=== PATIENT | male | born 1955 | race Caucasian/White ===

== ENCOUNTER 2019-12-17 12:00 | Outpatient (CLI) | payer OTHER, SELFPAY ==
--- NOTE | ~2019-12-17 | US_ITS ---
EXAMINATION: US venous doppler [facility] DATE: 12/17/2019 12:39 INDICATION: Left lower limb edema TECHNIQUE: Juarez scale images without and with compression and Doppler images of the left lower extrem ity veins were obtained. COMPARISON: None FINDINGS: The left common femoral vein, profunda femoral vein, femoral vein, popliteal vein, peroneal trunk, posterior tibial veins, and greater saphenous vein are patent. IMPRESSION: 1. Patent left lower extremity veins. No evidence of deep venous thrombosis. Reviewed, dictated and finalized at location A.
== END 2019-12-17 12:01 | disposition home or self-care (01) ==
LOC: ANHIMG 12:03
PROVIDERS: PCP Internal Medicine; Visit Provider Internal Medicine
DX: R60.9 Edema, unspecified (principal)
CPT/HCPCS: 93971

== ENCOUNTER 2019-12-25 10:34 | Outpatient (CLI) | payer OTHER, SELFPAY ==
--- NOTE | ~2019-12-25 | US_ITS ---
EXAMINATION: US abdomen limited EXAM DATE: 12/25/2019 12:38 INDICATION: Right upper quadrant pain. TECHNIQUE: Multiple grayscale and Doppler images of the abdomen right upper quadrant were obtained (adama y a technologist who performed the scan) and subsequently reviewed. There is no prior study for sarah fleming. FINDINGS: The pancreatic head and body are normal in appearance. The pancreatic tail is not visualized. The l iver has normal echogenicity and contour. There are no focal liver lesions identified. There is no evidence of intrahepatic biliary duct dilation. Portal venous flow was seen in the hepatopedal, nor mal direction and has normal Doppler waveform. No right-sided hydronephrosis. Common bile duct measures 5 mm, which is normal. The gallbladder wall is normal in thickness, with ex pected amount of distention. No sonographic evidence of pericholecystic fluid. There is no cholelit hiases. Technologist performing exam reports patient did not demonstrate sonographic Bustos's sign. Please note that this sign is less reliable in patients who have received pain medication. IMPRESSION: 1. Unremarkable abdominal ultrasound exam. Reviewed, dictated and finalized at location B.
== END 2019-12-25 10:35 | disposition home or self-care (01) ==
LOC: ANHIMG 10:40
PROVIDERS: PCP Internal Medicine; Visit Provider Internal Medicine
DX: R10.11 Right upper quadrant pain (principal)
CPT/HCPCS: 76705

== ENCOUNTER 2020-05-16 07:07 | Outpatient (CLI) | payer OTHER, SELFPAY ==
[2020-05-16 07:47] LABS: Hemoglobin A1C 5.5 % (<5.7)
[2020-05-16 07:54] LABS: Alanine Aminotransferase 27 U/L (4-50); Albumin Level 4.3 g/dL (3.5-5.1); Alkaline Phosphatase 76 U/L (38-126); Anion Gap 5 mmol/L (8-16); Aspartate Amino Transferase 32 U/L (17-59); Bilirubin,Total 0.7 mg/dL (0.2-1.3); Blood Urea Nitrogen 15 mg/dL (9-20); Calcium 9.2 mg/dL (8.4-10.2); Carbon Dioxide 32 mmol/L (22-30); Chloride 105 mmol/L (98-107); Estimated Glomerular Filt Rate > 60; Glucose 105 mg/dL (75-110); Potassium 4.2 mmol/L (3.4-5.0); Sodium 142 mmol/L (137-145)
== END 2020-05-16 07:08 | disposition home or self-care (01) ==
PROVIDERS: PCP Internal Medicine; Referring Provider Specialist; Visit Provider Nurse Practitioner
DX: R73.02 Impaired glucose tolerance (oral) (principal)
CPT/HCPCS: 36415; 80053; 83036

== ENCOUNTER 2020-07-30 19:18 | Emergency (ER) | payer OTHER, SELFPAY ==
--- NOTE | ~2020-07-30 | XR_ITS ---
XR chest 2V DATE: 07/30/2020 19:53 INDICATION: Chest pain, epigastric pain. History of atrial fibrillation, hypertension, gastroesophage al reflux TECHNIQUE: PA and lateral views COMPARISON: 07/24/2019 PA and lateral chest FINDINGS: Normal heart size. There is aortic unfolding. No hilar or mediastinal enlargement is eviden t. Minimal atelectasis is suggested at the lung bases. The lungs otherwise appear clear. No pulmonary va scular congestion or pleural effusion or pneumothorax. Diffuse osteopenia. IMPRESSION: Minimal atelectasis at the lung bases; otherwise no active cardiac pulmonary disease Reviewed, dictated and finalized at location A. [employer]
[2020-07-30 19:24] VITALS: BP 152/89; PULSE 63; RESP 16; TEMP 37.1; O2SAT 100
--- NOTE | 2020-07-30 19:29 | ECG_ITS ---
Measurements Intervals [place] Rate: 61 P: 44 WY: 212 QRS: -14 QRSD: 102 T: 51 QT: 377 QTc: 381 Interpretive Statements SINUS RHYTHM WITH FIRST DEGREE AV BLOCK BASELINE ARTIFACT- I, II, III, AVR, AVF ABNORMAL ECG Electronically Signed On 07-31-2020 6:51:23 [facility] by Guille Mcgarry D.O.
[2020-07-30 19:33] VITALS: BP 143/91; PULSE 75; RESP 21; TEMP 36.6; O2SAT 98
[2020-07-30 20:00] LABS: Basophils Absolute Auto 0.1 K/mm3 (0.0-0.1); Basophils Percent Auto 0.6 % (0.2-1.2); Eosinophils Absolute Auto 0.3 K/mm3 (0-0.3); Eosinophils Percent Auto 3.6 % (0-4.4); Hematocrit 42.9 % (42.0-52.0); Hemoglobin 14.5 g/dL (14.0-18.0); Immature Granulocyte Absolute 0.01 K/mm3 (0.00-0.031); Immature Granulocyte Percent A 0.1 % (0-0.5); Lymphocytes Absolute Auto 2.77 K/mm3 (0.9-3.2); Lymphocytes Percent Auto 35.9 % (18.3-44.2); Mean Corpuscular HGB Conc 33.8 g/dl (32-36); Mean Corpuscular Hemoglobin 30.2 pg (26-34); Mean Corpuscular Volume 89.4 fl (80-100); Mean Platelet Volume 9.2 fl (7.4-10.4); Monocytes Percent Auto 12.6 % (2.6-8.5); Neutrophils Absolute Auto 3.6 K/mm3 (1.3-6.7); Neutrophils Percent Auto 47.2 % (45.5-73.1); Platelet Count Result 295 k/mm3 (150-375); Red Cell Distribution Width 12.1 % (11.5-14.5); White Blood Count 7.7 K/mm3 (4.5-10.0)
[2020-07-30 20:02] LABS: Add Urine Microscopic? NO; Appearance Urine Clear (Clear); Bilirubin Urine Negative (Negative); Blood Urine Negative (Negative); Color Urine Straw (Yellow); Glucose Urine UA Negative (Negative); Ketones Urine Negative (Negative); Leukocyte Esterase Ur Negative LEU/UL (Negative); Nitrate Urine Negative (Negative); Protein Urine Negative (Negative); Specific Grav Ur 1.011 (1.001-1.035); Urobilinogen Urine Negative mg/dL (<2.0)
--- NOTE | 2020-07-30 20:03 | ED.GENADULT ---
HPI - General Adult General Chief complaint: Abdominal Pain Stated complaint: left rib pain, urgent care sent here. Time Seen by Provider: 07/30/20 19:49 Source: patient Mode of arrival: ambulatory Limitations: no limitations History of Present Illness HPI narrative: A 64-year-old [facility] of pain in his left lower chest, left upper abdomen. Patient states that the pain came on a couple of hours ago when he was eating dinner. He notes that it is a sharp pain in the lower aspect of his ribs on the left side. Pain does not radiate anywhere. He denies any chest pain or deeper belly pain. He denies any associated symptoms such as nausea or vomiting. Patient also denies any shortness of breath, fever, chills, cough or body aches. He states that he was originally at an urgent care center when he was told to come here as his pain may be related to his heart and his A. fib. Related Data Home Medications Medication Instructions Recorded Confirmed Adult Multivitamin Gummies 200 mcg PO DAILY 07/24/19 05/23/20 aspirin [Adult Low Dose Aspirin] 81 mg PO DAILY 07/24/19 05/23/20 calcium carbonate [Calcium 500] 500 mg PO DAILY 07/24/19 05/23/20 cetirizine 10 mg PO DAILY 07/24/19 05/23/20 magnesium 100 mg PO DAILY 07/30/20 Allergies Allergy/AdvReac Type Severity Reaction Status Date / Time No Known Allergies Allergy Verified 07/30/20 19:38 Review of Systems Review of Systems: Narrative: CONSTITUTIONAL: Denies fever, chills, or sweats. EYES: Denies visual changes, redness, or discharge. ENT: Denies rhinorrhea, congestion, sore throat, or otalgia. CARDIOVASCULAR: Denies chest pain, palpitations, or edema. Tenderness to palpation on the left lower ribs. RESPIRATORY: Denies cough or dyspnea. GASTROINTESTINAL: Denies abdominal pain, nausea, vomiting, or diarrhea. GENITOURINARY: Denies dysuria or hematuria. SKIN: Denies rash or itching. MUSCULOSKELETAL: Denies back pain, joint pain, or myalgia. NEUROLOGIC: Denies headache, numbness, dizziness, or weakness. PSYCHIATRIC: Denies anxiety or depression. [facility] Past Medical History Medical History (Updated 07/30/20 @ 21:23 by Hank Corbin DO) Chronic headaches GERD (gastroesophageal reflux disease) History of stress test Unremarkable stress test in August 2018. Hypertension Impaired glucose tolerance Internal hemorrhoids Noted on screening colonoscopy per Dr. Vera in October 2010. Obstructive sleep apnea Surgical History Surgical History Status post excision of lipoma Status post repair of ventral hernia Open ventral hernia repair with mesh per Dr. perdomo in July 2014. Status post rotator cuff repair 2009. Family History Family History Mother , Mother at age 49. Breast cancer Father , at age 63. Bone cancer Father Family history of malignant neoplasm of bone Patient's father is Mother Family history of malignant neoplasm of breast in first degree relative Other Family history of cardiovascular disease Social History Social History Social History: Mr. Gabriel is and lives with his in [place]. They have 3 children. 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 He designates his , Elsa, as his surrogate decision maker and he wishes to be a full code. He smoked up to 2 packs of cigarettes per day and quit 25 years ago. No alcohol or drug abuse. Smoking status: Former smoker Smoking end date: 07/01/98 Additional smoking assessment comments: Quit 20 years ago. Gender identity (if verbalized by the patient): Male Spiritual care concerns: Yes ([facility]) Agree to blood products: Yes Exam Narrative: Exam Narrative: GENERAL: Well-appearing, well-nourished, and in no acute
--- NOTE | 2020-07-30 20:04 | PC.NURSE ---
Called lab spoke with linda added on lipase
[2020-07-30 20:10] LABS: INR 1.9; Prothrombin Time 22.3 Seconds (11.1-14.7)
[2020-07-30 20:11] LABS: Partial Thromboplastin Time 39.7 SECONDS (22.3-36.8)
[2020-07-30 20:13] LABS: Anion Gap 1 mmol/L (8-16); Blood Urea Nitrogen 18 mg/dL (9-20); Calcium 8.9 mg/dL (8.4-10.2); Carbon Dioxide 31 mmol/L (22-30); Chloride 106 mmol/L (98-107); Estimated CRCL calculation 71 ml/min; Estimated Glomerular Filt Rate > 60; Glucose 114 mg/dL (75-110); Lipase 129 U/L (23-300); Potassium 3.6 mmol/L (3.4-5.0); Sodium 138 mmol/L (137-145)
[2020-07-30 20:24] LABS: Troponin I < 0.012 ng/mL (0.000-0.034)
[2020-07-30] MEDS: KETOROLAC 15 MG/ML VIAL (*BKC) IV PUSH (21:00)
[2020-07-30 21:42] VITALS: BP 131/85; PULSE 54; RESP 19; TEMP 36.4; O2SAT 97
== END 2020-07-30 21:43 | disposition home or self-care (01) ==
PROVIDERS: Emergency Medicine; Emergency Provider Emergency Medicine; PCP Internal Medicine
DX: R07.81 Pleurodynia (principal); K21.9 Gastro-esophageal reflux disease without esophagitis; I10 Essential (primary) hypertension; G47.33 Obstructive sleep apnea (adult) (pediatric); Z79.82 Long term (current) use of aspirin; Z87.891 Personal history of nicotine dependence; I44.0 Atrioventricular block, first degree
CPT/HCPCS: 36415; 71046; 80048; 81003; 83690; 84484; 85025; 85610; 85730; 93005; 96374; 99284; J1885

== ENCOUNTER 2020-10-17 09:28 | Outpatient (CLI) | payer MEDICARE, SELFPAY ==
[2020-10-17 10:14] LABS: Alanine Aminotransferase 19 U/L (4-50); Albumin Level 4.3 g/dL (3.5-5.1); Alkaline Phosphatase 75 U/L (38-126); Anion Gap 5 mmol/L (8-16); Aspartate Amino Transferase 24 U/L (17-59); Bilirubin,Total 0.2 mg/dL (0.2-1.3); Blood Urea Nitrogen 12 mg/dL (9-20); Calcium 8.8 mg/dL (8.4-10.2); Carbon Dioxide 28 mmol/L (22-30); Chloride 108 mmol/L (98-107); Estimated Glomerular Filt Rate > 60; Glucose 113 mg/dL (75-110); Sodium 141 mmol/L (137-145)
[2020-10-17 10:39] LABS: Hemoglobin A1C 5.7 % (<5.7)
== END 2020-10-17 09:29 | disposition home or self-care (01) ==
PROVIDERS: PCP Internal Medicine; Visit Provider Internal Medicine
DX: R73.02 Impaired glucose tolerance (oral) (principal)
CPT/HCPCS: 36415; 80053; 83036

== ENCOUNTER 2020-12-14 19:46 | Emergency (ER) | payer MEDICARE, SELFPAY ==
--- NOTE | ~2020-12-14 | XR_ITS ---
XR elbow RT min 3V DATE: 12/14/2020 20:18 INDICATION: Ground-level fall. Right elbow injury, pain, dorsal soft tissue swelling TECHNIQUE: 4 views COMPARISON: None FINDINGS: There is dorsal soft tissue swelling over the proximal ulna. Mild radial head spurring cons istent with osteoarthritis. There is some chronic bony ossicles along the distal medial and lateral a spect of the humerus. No apparent recent fracture. No dislocation. No joint effusion is evident. 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
[2020-12-14 20:33] VITALS: BP 144/83; PULSE 79; RESP 14; TEMP 36.7; O2SAT 95
[2020-12-14 21:13] VITALS: BP 143/78; PULSE 78; RESP 18; TEMP 36.7; O2SAT 99
--- NOTE | 2020-12-14 21:16 | ED.GENADULT ---
HPI - General Adult General Chief complaint: Extremity Injury, Upper Stated complaint: glf-rt elbow injury Time Seen by Provider: 12/14/20 21:10 History of Present Illness HPI narrative: Patient 61-year-old gentleman who presents the emergency department chief complaint of ground-level fall and right elbow pain. Patient states that he is on a anticoagulant he fell struck his right elbow and noticed that he started having swelling on the ulnar aspect of his right elbow. The patient denies numbness tingling denies coolness and pallor of the extremity. Patient states he was concerned that he may have broken something to the amount of swelling. Related Data Home Medications Medication Instructions Recorded Confirmed Adult Multivitamin Gummies 200 mcg PO DAILY 07/24/19 05/23/20 aspirin [Adult Low Dose Aspirin] 81 mg PO DAILY 07/24/19 05/23/20 calcium carbonate [Calcium 500] 500 mg PO DAILY 07/24/19 05/23/20 cetirizine 10 mg PO DAILY 07/24/19 05/23/20 magnesium 100 mg capsule 150 mg PO DAILY cap 10/17/20 Allergies Allergy/AdvReac Type Severity Reaction Status Date / Time No Known Allergies Allergy Verified 12/14/20 21:02 Review of Systems Review of Systems: Narrative: A 10 system review of systems was completed on the patient and is negative except for what is stated in the HPI. Nursing and ancillary documentation was reviewed. [facility] Past Medical History Medical History Chronic headaches GERD (gastroesophageal reflux disease) History of stress test Unremarkable stress test in August 2018. Hypertension Impaired glucose tolerance Internal hemorrhoids Noted on screening colonoscopy per Dr. Vera in October 2010. Obstructive sleep apnea Surgical History Surgical History Status post excision of lipoma Status post repair of ventral hernia Open ventral hernia repair with mesh per Dr. perdomo in July 2014. Status post rotator cuff repair 2009. Family History Family History Mother , Mother at age 49. Breast cancer Father , at age 63. Bone cancer Father Family history of malignant neoplasm of bone Patient's father is Mother Family history of malignant neoplasm of breast in first degree relative Other Family history of cardiovascular disease Social History Social History Social History: Mr. Gabriel is and lives with his in [place]. They have 3 children. 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 He designates his , Elsa, as his surrogate decision maker and he wishes to be a full code. He smoked up to 2 packs of cigarettes per day and quit 25 years ago. No alcohol or drug abuse. Smoking packs per day: 2 Smoking cigarettes per day: 40.0 Years smoked: 25 Smoking pack-years: 50.00 Smoking status: Former smoker Tobacco type: cigarettes Second hand tobacco smoke exposure: No Smoking end date: 07/01/98 Additional smoking assessment comments: Quit 20 years ago. Alcohol intake: never Gender identity (if verbalized by the patient): Male Spiritual care concerns: Yes ([facility]) Agree to blood products: Yes Exam Narrative: Exam Narrative: GENERAL: Well-appearing, well-nourished, and in no acute distress. HEAD: Normocephalic, atraumatic. EYES: PERRLA and EOMI. ENT: Nares clear, no rhinorrhea or epistaxis. Mucous membranes moist. NECK: Supple. CHEST: Clear to auscultation. No respiratory distress. HEART: Regular rate and rhythm. No murmur heard. Normal peripheral pulses. ABDOMEN: Soft, nontender, nondistended, normal active bowel sounds. EXTREMITIES: Normal range of motion. No edema. There is swelling present on the ulnar aspect of the right forearm next to the e
== END 2020-12-14 21:42 | disposition home or self-care (01) ==
PROVIDERS: Emergency Provider Emergency Medicine; PCP Internal Medicine
DX: S50.01XA Contusion of right elbow, initial encounter (principal); I10 Essential (primary) hypertension; G47.33 Obstructive sleep apnea (adult) (pediatric); K21.9 Gastro-esophageal reflux disease without esophagitis; Z79.82 Long term (current) use of aspirin; Z79.01 Long term (current) use of anticoagulants; Z87.891 Personal history of nicotine dependence; W18.30XA Fall on same level, unspecified, initial encounter
CPT/HCPCS: 73080; 99283; A4565

== ENCOUNTER 2021-01-12 12:55 | Emergency (ER) | payer MEDICARE, SELFPAY ==
[2021-01-12 13:03] VITALS: PULSE 66; RESP 16; TEMP 36.7; O2SAT 99
[2021-01-12 13:09] VITALS: PULSE 66; RESP 16; TEMP 36.7; O2SAT 99
--- NOTE | 2021-01-12 13:25 | ED.SKABFB ---
HPI - Skin/Abscess/Foreign Bdy General Chief complaint: Skin/Abscess/Foreign Body Stated complaint: Rash on Face Time Seen by Provider: 01/12/21 13:25 Source: patient Mode of arrival: ambulatory Limitations: no limitations History of Present Illness HPI narrative: Ac Gabriel is a 65-year-old male with no PMH who comes to [facility] with contact dermatitis all over his face and arms; started 3 days ago, his face is just broken out in the last day. Did some work in his yard 3 days ago Related Data Home Medications Medication Instructions Recorded Confirmed Adult Multivitamin Gummies 200 mcg PO DAILY 07/24/19 01/12/21 aspirin [Adult Low Dose Aspirin] 81 mg PO DAILY 07/24/19 01/12/21 calcium carbonate [Calcium 500] 500 mg PO DAILY 07/24/19 01/12/21 cetirizine 10 mg PO DAILY 07/24/19 01/12/21 magnesium 100 mg capsule 150 mg PO DAILY cap 10/17/20 01/12/21 verapamil 180 mg PO DAILY 01/12/21 01/12/21 Allergies Allergy/AdvReac Type Severity Reaction Status Date / Time No Known Allergies Allergy Verified 01/12/21 12:58 Review of Systems Review of Systems: Narrative: CONSTITUTIONAL: Denies fever, chills, sweats. EYES: Denies visual changes, redness, discharge. ENT: Denies rhinorrhea, congestion, sore throat, otalgia. CARDIOVASCULAR: Denies chest pain, palpitations, edema. RESPIRATORY: Denies dyspnea, wheezing, cough GASTROINTESTINAL: Denies abdominal pain, nausea, vomiting, diarrhea. GENITOURINARY: Denies dysuria, hematuria, abnormal discharge SKIN: Has rash on face and R arm NEUROLOGIC: Denies numbness, or focal weakness. PSYCHIATRIC: Denies anxiety or depression. [facility] Past Medical History Medical History Chronic headaches GERD (gastroesophageal reflux disease) History of stress test Unremarkable stress test in August 2018. Hypertension Impaired glucose tolerance Internal hemorrhoids Noted on screening colonoscopy per Dr. Vera in October 2010. Obstructive sleep apnea Surgical History Surgical History Status post excision of lipoma Status post repair of ventral hernia Open ventral hernia repair with mesh per Dr. perdomo in July 2014. Status post rotator cuff repair 2009. Family History Family History Mother , Mother at age 49. Breast cancer Father , at age 63. Bone cancer Father Family history of malignant neoplasm of bone Patient's father is Mother Family history of malignant neoplasm of breast in first degree relative Other Family history of cardiovascular disease Social History Social History Social History: Mr. Gabriel is and lives with his in [place]. They have 3 children. 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 He designates his , Elsa, as his surrogate decision maker and he wishes to be a full code. He smoked up to 2 packs of cigarettes per day and quit 25 years ago. No alcohol or drug abuse. Smoking packs per day: 2 Smoking cigarettes per day: 40.0 Years smoked: 25 Smoking pack-years: 50.00 Smoking status: Former smoker Tobacco type: cigarettes Second hand tobacco smoke exposure: No Smoking end date: 07/01/98 Additional smoking assessment comments: Quit 20 years ago. Alcohol intake: never Gender identity (if verbalized by the patient): Male Spiritual care concerns: Yes ([facility]) Agree to blood products: Yes Comments At time of signature, I agree with nursing past medical, surgical, social and family history. There is no relevant family history pertinent to the presenting complaint. Exam Narrative: Exam Narrative: GENERAL: This is a well-nourished, well-developed patient, in mild distress. HEAD: normocephalic, atraumatic. EYES: Sclera clear/whi
== END 2021-01-12 13:36 | disposition home or self-care (01) ==
PROVIDERS: Emergency Provider Nurse Practitioner; PCP Internal Medicine
DX: L23.7 Allergic contact dermatitis due to plants, except food (principal); Z87.891 Personal history of nicotine dependence; K21.9 Gastro-esophageal reflux disease without esophagitis; I10 Essential (primary) hypertension; G47.33 Obstructive sleep apnea (adult) (pediatric)
CPT/HCPCS: 99213; G0463

== ENCOUNTER 2021-03-18 07:06 | Outpatient (CLI) | payer MEDICARE, SELFPAY ==
[2021-03-18 07:35] LABS: Hemoglobin A1C 5.8 % (<5.7)
[2021-03-18 07:37] LABS: Alanine Aminotransferase 25 U/L (4-50); Albumin Level 4.1 g/dL (3.5-5.1); Alkaline Phosphatase 107 U/L (38-126); Anion Gap 6 mmol/L (8-16); Aspartate Amino Transferase 25 U/L (17-59); Bilirubin,Total 0.5 mg/dL (0.2-1.3); Blood Urea Nitrogen 12 mg/dL (9-20); Carbon Dioxide 29 mmol/L (22-30); Chloride 106 mmol/L (98-107); Estimated Glomerular Filt Rate > 60; Glucose 107 mg/dL (65-110); Potassium 4.5 mmol/L (3.4-5.0); Sodium 141 mmol/L (137-145)
== END 2021-03-18 07:07 | disposition home or self-care (01) ==
PROVIDERS: PCP Internal Medicine; Visit Provider Internal Medicine
DX: R73.03 Prediabetes (principal); I10 Essential (primary) hypertension
CPT/HCPCS: 36415; 80053; 83036

== ENCOUNTER 2021-09-16 08:09 | Emergency (ER) | payer MEDICARE, SELFPAY ==
[2021-09-16 08:20] VITALS: BP 142/89; PULSE 72; RESP 16; TEMP 36.8; O2SAT 99
[2021-09-16 08:31] VITALS: BP 142/89; PULSE 72; RESP 16; TEMP 36.8; O2SAT 99
--- NOTE | 2021-09-16 08:32 | ED.URI ---
HPI - URI/Sore Throat General Chief Complaint: Upper Respiratory Infection Stated Complaint: Cough,Watery Eyes Time Seen by Provider: 09/16/21 08:32 Source: patient Mode of arrival: ambulatory Limitations: no limitations History of Present Illness HPI Narrative: 66-year-old male presents with complaint of dry cough, watery and itchy eyes, runny nose for 2 days. He denies fever, chills, body aches, headache, congestion. He denies chest pain and shortness of breath. He takes Zyrtec daily. States cough kept him up all night. Has not taken any [id number] cough medication to treat his symptoms. All systems reviewed and negative except as noted above. Related Data Home Medications Medication Instructions Recorded Confirmed Adult Multivitamin Gummies 200 mcg PO DAILY 07/24/19 09/16/21 aspirin [Adult Low Dose Aspirin] 81 mg PO DAILY 07/24/19 09/16/21 calcium carbonate [Calcium 500] 500 mg PO DAILY 07/24/19 09/16/21 magnesium 100 mg capsule 150 mg PO DAILY cap 10/17/20 09/16/21 cetirizine [Zyrtec] 10 mg PO DAILY 09/16/21 09/16/21 Allergies Allergy/AdvReac Type Severity Reaction Status Date / Time No Known Allergies Allergy Verified 09/16/21 08:11 Review of Systems Review of Systems: CONSTITUTIONAL: Denies fever, chills, or sweats. EYES: Denies visual changes, redness. Reports itching and clear discharge. ENT: Denies rhinorrhea, congestion, sore throat, or otalgia. CARDIOVASCULAR: Denies chest pain, palpitations, or edema. RESPIRATORY: Reports cough. Denies dyspnea. GASTROINTESTINAL: Denies abdominal pain, nausea, vomiting, or diarrhea. GENITOURINARY: Denies dysuria or hematuria. SKIN: Denies rash or itching. MUSCULOSKELETAL: Denies back pain, joint pain, or myalgia. NEUROLOGIC: Denies headache, numbness, or weakness. PSYCHIATRIC: Denies anxiety or depression. All other systems reviewed are negative, except as documented in HPI. [facility] Past Medical History Medical History (Updated 09/16/21 @ 08:39 by Fidelina Santiago NP) Chronic headaches GERD (gastroesophageal reflux disease) History of stress test Unremarkable stress test in August 2018. Hypertension Impaired glucose tolerance Internal hemorrhoids Noted on screening colonoscopy per Dr. Vera in October 2010. Obstructive sleep apnea Surgical History Surgical History Status post excision of lipoma Status post repair of ventral hernia Open ventral hernia repair with mesh per Dr. perdomo in July 2014. Status post rotator cuff repair 2009. Family History Family History Mother , Mother at age 49. Breast cancer Father , at age 63. Bone cancer Father Family history of malignant neoplasm of bone Patient's father is Mother Family history of malignant neoplasm of breast in first degree relative Other Family history of cardiovascular disease Social History Social History (Updated 04/18/21 @ 09:32 by Kate Shepard, [facility]) Social History: Mr. Gabriel is and lives with his in [place]. They have 3 children. 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 He designates his , Elsa, as his surrogate decision maker and he wishes to be a full code. He smoked up to 2 packs of cigarettes per day and quit 25 years ago. No alcohol or drug abuse. Smoking packs per day: 2 Smoking cigarettes per day: 40.0 Years smoked: 25 Smoking pack-years: 50.00 Smoking status: Former smoker Tobacco type: cigarettes Second hand tobacco smoke exposure: No Smoking end date: 07/01/98 Additional smoking assessment comments: Quit 20 years ago. Alcohol intake: never Substance use: never Substance use type: does not use Gender identity (if verbalized by the patient): Male Spiritual care concerns: Yes ([facility]) Agree to blood products: Yes Comments At time
== END 2021-09-16 08:49 | disposition home or self-care (01) ==
PROVIDERS: Emergency Provider Nurse Practitioner Family; PCP Internal Medicine
DX: J01.90 Acute sinusitis, unspecified (principal); Z87.891 Personal history of nicotine dependence; K21.9 Gastro-esophageal reflux disease without esophagitis; I10 Essential (primary) hypertension; G47.33 Obstructive sleep apnea (adult) (pediatric); R73.02 Impaired glucose tolerance (oral)
CPT/HCPCS: 99213; G0463

== ENCOUNTER 2021-09-30 18:03 | Emergency (ER) | payer MEDICARE, SELFPAY ==
[2021-09-30 18:11] VITALS: BP 136/81; PULSE 70; RESP 16; TEMP 37.3; O2SAT 99
--- NOTE | 2021-09-30 18:16 | ED.URI ---
HPI - URI/Sore Throat General Chief Complaint: Upper Respiratory Infection Stated Complaint: Sore throat,Runny Eyes Time Seen by Provider: 09/30/21 18:17 Source: patient, RN notes reviewed and old records reviewed Mode of arrival: ambulatory Limitations: no limitations History of Present Illness HPI Narrative: 66-year-old male presents to the [facility] with continued sore throat and runny eyes. Has been seen on September 16 for the same, 2 weeks ago. States the eyes are doing better with the eyedrops. Has not followed up with primary care provider. Has trouble using his CPAP machine due to the sore throat and coughing. MD elicited complaint: sore throat Related Data Home Medications Medication Instructions Recorded Confirmed Adult Multivitamin Gummies 200 mcg PO DAILY 07/24/19 09/16/21 aspirin [Adult Low Dose Aspirin] 81 mg PO DAILY 07/24/19 09/16/21 calcium carbonate [Calcium 500] 500 mg PO DAILY 07/24/19 09/16/21 magnesium 100 mg capsule 150 mg PO DAILY cap 10/17/20 09/16/21 cetirizine [Zyrtec] 10 mg PO DAILY 09/16/21 09/16/21 Allergies Allergy/AdvReac Type Severity Reaction Status Date / Time No Known Allergies Allergy Verified 09/16/21 08:11 Review of Systems Review of Systems: All systems reviewed & are unremarkable except as noted in HPI and below Constitutional: Constitutional: Reports no additional constitutional complaints, Denies chills, Denies fever(s) and Denies headache(s) Eyes: Eyes: Reports no additional eye complaints ENT: Reports as per HPI, Denies vertigo, Denies dizziness, Denies headache(s), Denies nasal congestion and Reports sore throat Cardiovascular: Cardiovascular: Reports no additional cardiovascular complaints, Denies chest pain, Denies syncope, Denies rapid heart rate and Denies dyspnea Respiratory: Respiratory: Reports no additional respiratory complaints, Denies cough, Denies dyspnea and Denies wheezing Gastrointestinal: Gastrointestinal: Reports no additional gastrointestinal complaints, Denies abdominal pain, Denies diarrhea, Denies nausea and Denies vomiting Musculoskeletal: Musculoskeletal: Reports no additional musculoskeletal complaints and Denies numbness Integumentary/Breasts: Skin/Breast: Reports system reviewed and no additional complaints, except as docu Neurologic: Reports system reviewed and no additional complaints, except as documented, Denies vertigo, Denies dizziness, Denies syncope, Denies headache(s), Denies focal weakness and Denies numbness Psychiatric: Psychiatric: Reports no additional psychiatric complaints Allergic/Immunologic: Allergic/Immunologic: Reports no additional allergic/immunologic complaints and Denies wheezing PMFSH Past Medical History Medical History Chronic headaches GERD (gastroesophageal reflux disease) History of stress test Unremarkable stress test in August 2018. Hypertension Impaired glucose tolerance Internal hemorrhoids Noted on screening colonoscopy per Dr. Vera in October 2010. Obstructive sleep apnea Surgical History Surgical History Status post excision of lipoma Status post repair of ventral hernia Open ventral hernia repair with mesh per Dr. perdomo in July 2014. Status post rotator cuff repair 2009. Family History Family History Mother , Mother at age 49. Breast cancer Father , at age 63. Bone cancer Father Family history of malignant neoplasm of bone Patient's father is Mother Family history of malignant neoplasm of breast in first degree relative Other Family history of cardiovascular disease Social History Social History Social History: Mr. Gabriel is and lives with his in [place]. They have 3 children. 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
== END 2021-09-30 18:56 | disposition home or self-care (01) ==
PROVIDERS: Emergency Provider Nurse Practitioner; PCP Internal Medicine
DX: J02.9 Acute pharyngitis, unspecified (principal); R05.9 Cough, unspecified; Z87.891 Personal history of nicotine dependence; K21.9 Gastro-esophageal reflux disease without esophagitis; I10 Essential (primary) hypertension; G47.33 Obstructive sleep apnea (adult) (pediatric); R73.02 Impaired glucose tolerance (oral)
CPT/HCPCS: 87081; 87880; 99213; G0463

== ENCOUNTER 2021-10-28 07:00 | Outpatient (CLI) | payer MEDICARE, SELFPAY ==
[2021-10-28 07:48] LABS: Alanine Aminotransferase 23 U/L (4-50); Albumin Level 4.5 g/dL (3.5-5.1); Alkaline Phosphatase 107 U/L (38-126); Anion Gap 7 mmol/L (8-16); Aspartate Amino Transferase 26 U/L (17-59); Bilirubin,Total 0.5 mg/dL (0.2-1.3); Blood Urea Nitrogen 14 mg/dL (9-20); Calcium 8.9 mg/dL (8.4-10.2); Carbon Dioxide 24 mmol/L (22-30); Chloride 108 mmol/L (98-107); Cholesterol 211 mg/dL (0-200); Estimated Glomerular Filt Rate > 60; Glucose 107 mg/dL (65-110); HDL Direct 45 mg/dL; Potassium 4.1 mmol/L (3.4-5.0); Sodium 139 mmol/L (137-145); Triglycerides 167 mg/dL (<150)
[2021-10-28 07:49] LABS: Hemoglobin A1C 5.6 % (<5.7)
[2021-10-28 07:59] LABS: LDL Cholesterol Direct 99 mg/dL
[2021-10-28 08:18] LABS: Prostate Specific Antigen 1.3 ng/mL (< OR = 4.0)
== END 2021-10-28 07:01 | disposition home or self-care (01) ==
LOC: ANHLAB 07:02
PROVIDERS: PCP Internal Medicine; Visit Provider Internal Medicine
DX: E78.5 Hyperlipidemia, unspecified (principal); Z12.5 Encounter for screening for malignant neoplasm of prostate; R73.02 Impaired glucose tolerance (oral)
CPT/HCPCS: 36415; 80053; 80061; 83036; 84153; G0103

== ENCOUNTER 2022-05-05 07:20 | Outpatient (CLI) | payer MEDICARE, SELFPAY ==
[2022-05-05 08:00] LABS: Hemoglobin A1C 5.8 % (<5.7)
[2022-05-05 08:01] LABS: Alanine Aminotransferase 25 U/L (6-50); Albumin Level 4.3 g/dL (3.5-5.1); Alkaline Phosphatase 94 U/L (38-126); Anion Gap 9 mmol/L (8-16); Aspartate Amino Transferase 25 U/L (17-59); Bilirubin,Total 0.8 mg/dL (0.2-1.3); Blood Urea Nitrogen 14 mg/dL (9-20); Calcium 8.9 mg/dL (8.4-10.2); Carbon Dioxide 27 mmol/L (22-30); Chloride 105 mmol/L (98-107); Cholesterol 207 mg/dL (0-200); Estimated Glomerular Filt Rate > 60; Glucose 103 mg/dL (65-110); HDL Direct 43 mg/dL; Potassium 4.1 mmol/L (3.4-5.0); Sodium 141 mmol/L (137-145); Triglycerides 180 mg/dL (<150)
[2022-05-05 08:12] LABS: LDL Cholesterol Direct 108 mg/dL
== END 2022-05-05 07:21 | disposition home or self-care (01) ==
PROVIDERS: PCP Internal Medicine; Visit Provider Nurse Practitioner
DX: E78.5 Hyperlipidemia, unspecified (principal); R73.02 Impaired glucose tolerance (oral); I10 Essential (primary) hypertension
CPT/HCPCS: 36415; 80053; 80061; 83036

== ENCOUNTER 2022-11-03 07:17 | Outpatient (CLI) | payer MEDICARE, SELFPAY ==
[2022-11-03 07:51] LABS: Hemoglobin A1C 5.8 % (<5.7)
[2022-11-03 08:10] LABS: Alanine Aminotransferase 27 U/L (6-50); Albumin Level 4.2 g/dL (3.5-5.1); Alkaline Phosphatase 85 U/L (38-126); Anion Gap 4 mmol/L (8-16); Aspartate Amino Transferase 25 U/L (17-59); Bilirubin,Total 0.6 mg/dL (0.2-1.3); Blood Urea Nitrogen 16 mg/dL (9-20); Calcium 8.7 mg/dL (8.4-10.2); Carbon Dioxide 29 mmol/L (22-30); Chloride 107 mmol/L (98-107); Cholesterol 204 mg/dL (0-200); Estimated Glomerular Filt Rate > 60; Glucose 102 mg/dL (65-110); HDL Direct 44 mg/dL; Potassium 4.4 mmol/L (3.4-5.0); Sodium 140 mmol/L (137-145); Triglycerides 157 mg/dL (<150)
[2022-11-03 08:22] LABS: LDL Cholesterol Direct 109 mg/dL
[2022-11-03 08:41] LABS: Prostate Specific Antigen 1.8 ng/mL (< OR = 4.0)
== END 2022-11-03 07:18 | disposition home or self-care (01) ==
PROVIDERS: PCP Family Medicine; Visit Provider Nurse Practitioner
DX: R73.02 Impaired glucose tolerance (oral) (principal); I10 Essential (primary) hypertension; Z79.899 Other long term (current) drug therapy; Z12.5 Encounter for screening for malignant neoplasm of prostate
CPT/HCPCS: 36415; 80053; 80061; 83036; 84153; G0103

== ENCOUNTER 2023-05-13 07:09 | Outpatient (CLI) | payer MEDICARE, SELFPAY ==
[2023-05-13 07:50] LABS: Hematocrit 44.6 % (42.0-52.0); Hemoglobin 14.6 g/dL (14.0-18.0); Mean Corpuscular HGB Conc 32.7 g/dl (32-36); Mean Corpuscular Hemoglobin 29.7 pg (26-34); Mean Corpuscular Volume 90.8 fl (80-100); Mean Platelet Volume 9.2 fl (7.4-10.4); Platelet Count Result 303 k/mm3 (150-375); Red Blood Count 4.91 M/mm3 (4.6-6.20); Red Cell Distribution Width 12.6 % (11.5-14.5)
[2023-05-13 08:00] LABS: Alanine Aminotransferase 32 U/L (6-50); Albumin Level 4.2 g/dL (3.5-5.1); Alkaline Phosphatase 81 U/L (38-126); Anion Gap 10 mmol/L (8-16); Aspartate Amino Transferase 30 U/L (17-59); Bilirubin,Total 0.8 mg/dL (0.2-1.3); Blood Urea Nitrogen 17 mg/dL (9-20); Calcium 9.3 mg/dL (8.4-10.2); Carbon Dioxide 26 mmol/L (22-30); Chloride 106 mmol/L (98-107); Cholesterol 190 mg/dL (0-200); Estimated Glomerular Filt Rate > 60; Glucose 98 mg/dL (65-110); HDL Direct 45 mg/dL; Potassium 4.1 mmol/L (3.4-5.0); Sodium 142 mmol/L (137-145); Triglycerides 180 mg/dL (<150)
[2023-05-13 08:03] LABS: Hemoglobin A1C 5.8 % (<5.7)
[2023-05-13 08:15] LABS: LDL Cholesterol Direct 95 mg/dL
== END 2023-05-13 07:10 | disposition home or self-care (01) ==
PROVIDERS: PCP Family Medicine; Visit Provider Nurse Practitioner
DX: E78.5 Hyperlipidemia, unspecified (principal); R73.02 Impaired glucose tolerance (oral); K21.9 Gastro-esophageal reflux disease without esophagitis
CPT/HCPCS: 36415; 80053; 80061; 83036; 85027

== ENCOUNTER 2023-05-26 13:13 | Emergency (ER) | payer MEDICARE, SELFPAY ==
[2023-05-26 13:32] VITALS: BP 147/107; PULSE 69; RESP 16; TEMP 36.6; O2SAT 98
--- NOTE | 2023-05-26 13:33 | ED.EAR ---
HPI - Ear Problem General Chief complaint: Ear Stated complaint: left ear issue Time Seen by Provider: 05/26/23 13:33 Source: patient Mode of arrival: ambulatory Limitations: no limitations History of Present Illness HPI Narrative: Ac lynn is a 67-year-old male patient presenting to the clinic today with complaints of decreased hearing in the left ear x3 days. He denies any known fever or chills. Denies any ear pain. Related Data Home Medications Medication Instructions Recorded Confirmed calcium carbonate 500 mg calcium 500 mg PO DAILY 07/24/19 05/26/23 (1,250 mg) tablet (Calcium 500) multivitamin with minerals-folic 200 mcg PO DAILY 07/24/19 05/26/23 acid 200 mcg chewable tablet (Adult Multivitamin Gummies) magnesium 100 mg capsule 150 mg PO DAILY 10/17/20 05/26/23 levocetirizine 5 mg tablet (Xyzal) 5 mg PO DAILY 05/01/22 05/26/23 Allergies Allergy/AdvReac Type Severity Reaction Status Date / Time No Known Allergies Allergy Verified 05/26/23 13:40 Review of Systems Review of Systems: Pertinent positives per HPI. Patient denies any fever, chills, rash, headache, visual changes, dizziness, cough, runny nose, sore throat, shortness of breath, chest pain, palpitations, nausea, vomiting, diarrhea, constipation, abdominal pain, or any urinary issues. [facility] Past Medical History Medical History Chronic headaches GERD (gastroesophageal reflux disease) History of stress test Unremarkable stress test in August 2018. Hypertension Impaired glucose tolerance Internal hemorrhoids Noted on screening colonoscopy per Dr. Vera in October 2010. Obstructive sleep apnea Surgical History Surgical History Status post excision of lipoma Status post repair of ventral hernia Open ventral hernia repair with mesh per Dr. perdomo in July 2014. Status post rotator cuff repair 2009. Family History Family History Mother , Mother at age 49. Breast cancer Father , at age 63. Bone cancer Father Family history of malignant neoplasm of bone Patient's father is Mother Family history of malignant neoplasm of breast in first degree relative Other Family history of cardiovascular disease Social History Social History Social History: Mr. Gabriel is and lives with his in [place]. They have 3 children. 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 He designates his , Elsa, as his surrogate decision maker and he wishes to be a full code. He smoked up to 2 packs of cigarettes per day and quit 25 years ago. No alcohol or drug abuse. Smoking packs per day: 2 Smoking cigarettes per day: 40.0 Years smoked: 25 Smoking pack-years: 50.00 Smoking status: Former smoker Tobacco type: cigarettes Second hand tobacco smoke exposure: No Smoking end date: 07/01/98 Additional smoking assessment comments: Quit 20 years ago. Alcohol intake: never Substance use: never Substance use type: does not use Lack of Transportation: No Lack of Food: Never True Current Housing: I Have Housing Concerned About Future Housing: No Difficulty Paying Gas/Electric Bills: No Difficulty Paying for Meds: No Currently Unemployed: No Education: Bachelor's Degree Difficulty w/ Childcare or Family Care: No Gender identity (if verbalized by the patient): Male [facility] Agree to blood products: Yes Comments At the time of my signature, I reviewed and agree with the nursing past medical, surgical, social, and family history. There is no relevant family history pertinent to the patient complaint. Exam Narrative: General: Well-developed, well nourished, in no apparent distr
[2023-05-26 13:55] VITALS: BP 134/84; PULSE 67
== END 2023-05-26 14:03 | disposition home or self-care (01) ==
PROVIDERS: Emergency Provider Nurse Practitioner Family; PCP Family Medicine
DX: H65.02 Acute serous otitis media, left ear (principal); Z87.891 Personal history of nicotine dependence; K21.9 Gastro-esophageal reflux disease without esophagitis; I10 Essential (primary) hypertension
CPT/HCPCS: 99213; G0463

== ENCOUNTER 2023-11-22 07:02 | Outpatient (CLI) | payer MEDICARE, SELFPAY ==
[2023-11-22 08:12] LABS: Alanine Aminotransferase 21 U/L (6-50); Albumin Level 4.3 g/dL (3.5-5.1); Alkaline Phosphatase 83 U/L (38-126); Anion Gap 6 mmol/L (4-12); Aspartate Amino Transferase 27 U/L (17-59); Bilirubin,Total 0.9 mg/dL (0.2-1.3); Blood Urea Nitrogen 13 mg/dL (9-20); Calcium 8.8 mg/dL (8.4-10.2); Carbon Dioxide 26 mmol/L (22-30); Chloride 107 mmol/L (98-107); Cholesterol 185 mg/dL (0-200); Estimated Glomerular Filt Rate > 60; Glucose 99 mg/dL (65-110); HDL Direct 44 mg/dL; Potassium 4.4 mmol/L (3.4-5.0); Sodium 139 mmol/L (137-145); Triglycerides 192 mg/dL (<150)
[2023-11-22 08:18] LABS: LDL Cholesterol Direct 104 mg/dL
[2023-11-22 08:37] LABS: Prostate Specific Antigen 1.9 ng/mL (< OR = 4.0)
[2023-11-22 09:18] LABS: Hemoglobin A1C 5.7 % (<5.7)
== END 2023-11-22 07:03 | disposition home or self-care (01) ==
PROVIDERS: PCP Family Medicine; Visit Provider Nurse Practitioner
DX: Z12.5 Encounter for screening for malignant neoplasm of prostate (principal); R73.02 Impaired glucose tolerance (oral); E78.49 Other hyperlipidemia; Z79.899 Other long term (current) drug therapy
CPT/HCPCS: 36415; 80053; 80061; 83036; 84153; 84443; G0103

== ENCOUNTER 2024-10-30 07:24 | Outpatient (CLI) | payer MEDICARE, SELFPAY ==
--- OUTSIDE RECORDS SUMMARY | 2024-10-30 07:28 | XMS_ITS | Clinical Summary ---
Author Organization [facility] [address] [facility] [address] Address [address] [place] [address] Care Team Providers Care Drain Tiler Name Role Phone Jurgen Gilman DO Primary Care Provider [phone] Allergies Active Allergy Reactions Criticality Noted Date Comments Ibuprofen Stomach upset Low 02/18/2009 Medications cetirizine (ZyrTEC) 10 mg tablet Take 1 tablet (10 mg total) by mouth daily Active multivitamin tabletIndicatio ns:Vitamin Deficiency Prevention Take 1 tablet by mouth Active aspirin 81 mg enteric coated tablet Take 1 tablet (81 mg total) by mouth daily Active pantoprazole DR (PROTONIX) 40 mg EC tablet Take 1 tablet (40 mg total) by mouth daily Active calcium carbonate (CALCIUM 500 ORAL) Take by mouth Active magnesium citrate 100 mg tablet Take by mouth Active verapamil SR (CALAN SR) 180 mg CR tablet Take 1 tablet (180 mg total) by mouth nightly 05/10/2020 Active Xarelto 20 mg tablet TAKE 1 TABLET BY MOUTH EVERY DAY 90 tablet 1 07/27/2024 Active Active Problems Problem Noted Date Diagnosed Date ALBERTO on CPAP 08/14/2019 Chronic anticoagulation 08/14/2019 Paroxysmal atrial fibrillation 08/14/2019 Encounters Date Type Department Care Team Description 08/25/2024 Telephone [facility] Cardiology [address] [place] [address] Flavio Coffman MD Med Management from Last 3 Months Surgical History Surgery Date Site/Laterality Comments ROTATOR CUFF REPAIR Right UMBILICAL HERNIA REPAIR Medical History Medical History Date Comments Atrial fibrillation (HCC) Obesity Family History Medical History Relation Name Comments Bone cancer Father Breast cancer Mother Relation Name Status Comments Father (Age 63) Mother (Age 49) Social History Tobacco Use Types Packs/Day Years Used Date Smoking Tobacco: Former Smokeless Tobacco: Never Tobacco Cessation:Counseling Given: Not Answered Alcohol Use Standard Drinks/Week Comments Not Currently 0 (1 standard drink = 0.6 oz pur e alcohol) Personal Safety Answer Date Recorded Getting School Help Needed Not on file 08/31 Sex and Gender Information Value Date Recorded Sex Assigned at Not on file 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 Gender Identity Not on file Sexual Orientation Not on file Obstetrics History Last Filed Vital Signs Vital Sign Reading Time Taken Comments Blood Pressure 128/80 12/03/2023 8:06 AM CDT Pulse 62 12/03/2023 8:06 AM CDT Temperature - - Respiratory Rate - - Oxygen Saturation 97% 12/03/2023 8:06 AM CDT Inhaled Oxygen Concentration - - Weight 107.9 kg (237 lb 14.4 oz) 12/03/2023 8:06 AM CDT Height 172.7 cm (5' 8 ) 12/03/2023 8:06 AM CDT Body Mass Index 36.17 12/03/2023 8:06 AM CDT Plan of Treatment Health Maintenance Due Date Last Done Comments Colon Cancer Screening-Colonoscopy 1954 Depression Screening 1954 Fall Risk Assessment 1954 Hepatitis C Screening 1954 DTaP/Tdap/Td Vaccine (1 - Tdap) 1965 Hepatitis B Screening 1972 Pneumococcal vaccine 65+ (1 of 1 - PCV) 2004 Zoster Vaccine (1 of 2) 2004 Abdominal Aortic Aneurysm (A AA) Screen 2019 Well Visit 65+ 2019 Influenza Vaccine (#1) 2024 9, 04/05/2018, 04/20/2014 Insurance AETNA MEDICARE GOLD AETNA MEDICARE GOLD Care Teams Drain Tiler Relationship Specialty Start Date End Date Jurgen Gilman DO PCP - General Internal Medicine 07/24/19
--- OUTSIDE RECORDS SUMMARY | 2024-10-30 07:29 | XMS_ITS | Data Portability ---
Author Organization [facility], Main Office Address [address] [place] [address] Care Team Providers Care Fuel System Maintenance Worker Name Role Phone MARIBEL ELIZONDO Primary Care Provider Assessment No assessment recorded. Plan of Treatment Reminders Order Date Submit Date Provider Last Modified By Organization Details Last Modified Time Details Appointments None recorded. Lab None recorded. Referral None recorded. Procedures cerumen removal (PROC) Not available 08:10:22 Surgeries None recorded. Imaging None recorded. Medication Orders None recorded. Patient TargetsNo targets recorded. Patient Instructions Encounter Date Encounter Id Patient Instructions Last Modified By Organization Details Last Modified Time 05/25/2024 [id number] discussed successfully removing cerumen to the right auditory canal. He will have an audiogram and tympanogram completed for hearing loss. We will follow-up on results become available. [email or web address] Not available 05/25/2024 12:33:07 Reason for Referral None Reported. Problems Name Problem SNOMED Code Status Onset Date Resolution Date Notes Provider Name and Address Organization Details Recorded Time Sensorineur al hearing loss 87445472 Active 2023 Kay Clinton RN null, [facility] 4 12:29:55 Impacted cerumen in right ear 8156340894128 103 Active 2023 VIKTOR Huang [address], [address], [place], [address], [facility] 4 12:32:10 Sensorineur al hearing loss of bilateral ears 745619729 Active 2023 VIKTOR Huang [address], [address], [place], [address], [facility] 12:32:19 Problem Notes None recorded. Medical Equipment None Reported. Allergies Allergen ID Allergen Name Allergen Category Reaction Reaction Severity Criticality Documentation Date Start Date Code Code System Note Provider Name and Address Organization Details Recorded Time 21596 ibuprofen medicatio n Not available Not available Not available 05/25/2024 5640 RxNorm SUSY Roland, [facility] 12:15:43 80234 Aleve medicatio n Not available Not available Not available 05/25/2024 26104 1 RxNorm SUSY Roland, [facility] 12:15:48 Medications Name Sig Start Date Stop Date Status Note LastModified by Organization Details LastModified Time amoxicillin 500 mg capsule TAKE 1 CAPSULE BY MOUTH EVERY 8 HOURS UNTIL FINISHED 05/25 completed Not Available Not Available Not Available benzonatate 200 mg capsule TAKE 1 CAPSULE BY MOUTH THREE TIMES A DAY FOR 10 DAYS 05/25 completed Not Available Not Available Not Available prednisone 20 mg tablet TAKE 2 TABLETS BY MOUTH ONCE DAILY FOR 5 DAYS 05/25 completed Not Available Not Available Not Available verapamil ER (SR) 180 mg tablet,exte nded release TAKE 1 TABLET MY MOUTH DAILY active Not Available Not Available No t Available pantoprazol e 40 mg tablet,celso yed release TAKE 1 TABLET BY MOUTH EVERY MORNING active Not Available Not Available No t Available Xarelto 20 mg tablet TAKE 1 TABLET BY MOUTH EVERY DAY active Not Available Not Available No t Available Paxlovid 300 mg (150 mg x 2)-100 mg tablets in a dose pack TAKE 1 (ORAL) DIRECTED ON DOSE PACK 05/25 completed Not Available Not Available Not Available Vitals Date Recorded Body weight Body mass index (BMI) Body height Provider Name and Address Organization Details Last Updated DateTime 05/25/2024 610635.86 g 35.3 kg/m2 175.26 cm Kay Clinton RN [facility] 05/25/2024 12:14:36 Social History Question Answer Notes LastModified by Organizat ion Details LastModified Time Tobacco Smoking Status Former Smoker SUSY Roland [facility] 05/25/2024 12:16:52 What Is Your Level Of Alcohol Consumption? None Information not available 05/25/2024 When Did You Quit Smoking? 16+yearssinc elastcigaret te Information not available 05/25/2024 Sex: Unknown Functional Status None recorded. Mental Status None recorded. Family History Relationship Description Onset Age of this Age Resolved Age Notes LastModified by Organization Details LastModified Time Father No current problems or disability Not available 05/25 12:15:11 Mother No current problems or disability Not available 05/25 12:15:11 Notes:NO ENT Medical History Condition Response SLEEP DISORDER Y HEARTBURN / REFLUX Y Past Encounters Encounter ID Performer Location Encounter Start Date Encounter Closed Date Diagnosis/Indication Diagnosis SNOMED-CT Code Diagnosis ICD10 Code Diagnosis Note [id number] Fredy Peters MD [facility] [place] [address] [place] [address] 05/25/2024 11:53:32 05/25/2024 12:33:55 Impacted cerumen in right ear 9580165972 642632 H61.21 cerumen impaction to the right ear removed with lavage Sensorineu ral hearing loss of bilateral ears 846177075 H90.3 Health Concerns Section Related Observation LastModified by Organization Detai ls LastModified Time None Recorded Concern Status LastModified by Organization Details LastModified Time None Recorded Advance Directives Directive None Recorded Payers Encounter Date Sequence Insurance Name Policy Number Policy Abraham Covered Member ID Abraham Member ID Guarantor Name 05/25/2024 1 [employer] - PRIME (MEDICARE REPLACEMENT/ ADVANTAGE - HMO) [id number] Ac Gabriel [id number] Ac Gabriel Notes Date Note Type Note Provider Name and Address Organization Details Recorded Time 05/25/2024 text/html this patient has a past medical history significant for sleep apnea on CPAP and atrial fibrillation. He presents to the office with a complaint of hearing loss that has been progressive over many years. He does report that his right ear feels blocked and has been affecting his hearing more so over the last week. He does report a history with loud occupational noise throughout his life. He denies any otalgia. Kay Reed, WIRING TECHNICIAN [address] [facility], [facility] [address], [place], [address], [facility] 05/25/2024 12:33:11
--- OUTSIDE RECORDS SUMMARY | 2024-10-30 07:29 | XMS_ITS | Referral Summary ---
Author Organization [facility] [address] Address [address] [place] [address] Care Team Providers Care Factory Manager Name Role Phone Jurgen Gilman DO Primary Care Provider [phone] Encounters Date Type Department Care Team Description 08/25/2024 Telephone [facility] Cardiology [address] [place] [address] Flavio Coffman MD Med Management from Last 3 Months Allergies Active Allergy Reactions Criticality Noted Date [...] Chronic anticoagulation 08/14/2019 Paroxysmal atrial fibrillation 08/14/2019 Social History Tobacco Use Types Packs/Day Years [...] on file 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 Gender Identity Not on file Sexual Orientation Not on file Last Filed Vital Signs Vital Sign Reading [...] 12/03/2023 8:06 AM CDT Plan of Treatment Not on file Insurance [facility] Member Subscriber Plan / Payer (Ef fective 2021-Present) Name:Ac Gabriel Relation to Subscriber:Self Name:Ac Gabriel Payer ID:[id number] ([facility]) Type:AETNA MEDICARE Address: [address] [place] [address] AET MEDICARE GOLD Care Teams Factory Manager Relationship Specialty Start Date End Date Jurgen Gilman DO PCP - General Internal Medicine 07/24/19
[2024-10-30 08:02] LABS: Hematocrit 46.3 % (42.0-52.0); Hemoglobin 14.9 g/dL (14.0-18.0); Mean Corpuscular HGB Conc 32.2 g/dl (32-36); Mean Corpuscular Hemoglobin 29.4 pg (26-34); Mean Corpuscular Volume 91.5 fl (80-100); Mean Platelet Volume 9.3 fl (7.4-10.4); Platelet Count Result 267 k/mm3 (150-375); Red Blood Count 5.06 M/mm3 (4.6-6.20); Red Cell Distribution Width 12.8 % (11.5-14.5); White Blood Count 7.2 K/mm3 (4.5-10.0)
[2024-10-30 08:12] LABS: Alanine Aminotransferase 44 U/L (6-50); Albumin Level 4.3 g/dL (3.5-5.1); Alkaline Phosphatase 96 U/L (38-126); Anion Gap 11 mmol/L (4-12); Aspartate Amino Transferase 34 U/L (17-59); Bilirubin,Total 1.1 mg/dL (0.2-1.3); Blood Urea Nitrogen 16 mg/dL (9-20); Calcium 8.8 mg/dL (8.4-10.2); Carbon Dioxide 25 mmol/L (22-30); Chloride 106 mmol/L (98-107); Cholesterol 175 mg/dL (0-200); Estimated Glomerular Filt Rate > 60; Glucose 103 mg/dL (65-110); HDL Direct 39 mg/dL; Potassium 4.2 mmol/L (3.4-5.0); Sodium 142 mmol/L (137-145); Triglycerides 133 mg/dL (<150)
[2024-10-30 08:23] LABS: LDL Cholesterol Direct 91 mg/dL
[2024-10-30 08:43] LABS: Prostate Specific Antigen 1.9 ng/mL (< OR = 4.0)
== END 2024-10-30 07:25 | disposition home or self-care (01) ==
PROVIDERS: PCP Nurse Practitioner; Visit Provider Nurse Practitioner
DX: R73.02 Impaired glucose tolerance (oral) (principal); Z79.899 Other long term (current) drug therapy; I10 Essential (primary) hypertension; Z12.5 Encounter for screening for malignant neoplasm of prostate
CPT/HCPCS: 36415; 80053; 80061; 83036; 84153; 84443; 85027; G0103

== ENCOUNTER 2025-05-01 06:50 | Outpatient (CLI) | payer MEDICARE, SELFPAY ==
[2025-05-01 08:24] LABS: Alanine Aminotransferase 26 U/L (6-50); Albumin Level 4.2 g/dL (3.5-5.1); Alkaline Phosphatase 100 U/L (38-126); Anion Gap 8 mmol/L (4-12); Aspartate Amino Transferase 29 U/L (17-59); Bilirubin,Total 0.8 mg/dL (0.2-1.3); Blood Urea Nitrogen 15 mg/dL (9-20); Calcium 9.0 mg/dL (8.4-10.2); Carbon Dioxide 27 mmol/L (22-30); Chloride 104 mmol/L (98-107); Estimated Glomerular Filt Rate > 60; Glucose 101 mg/dL (65-110); Potassium 4.2 mmol/L (3.4-5.0); Sodium 139 mmol/L (137-145); Total Protein 7.4 g/dL (6.3-8.2)
[2025-05-01 08:42] LABS: Hemoglobin A1C 5.8 % (<5.7)
== END 2025-05-01 06:51 | disposition home or self-care (01) ==
PROVIDERS: PCP Nurse Practitioner; Visit Provider Nurse Practitioner
DX: I10 Essential (primary) hypertension (principal); R73.02 Impaired glucose tolerance (oral)
CPT/HCPCS: 36415; 80053; 83036

== ENCOUNTER 2025-05-12 15:46 | Outpatient (CLI) | payer MEDICARE, SELFPAY ==
[2025-05-12 16:14] LABS: Add Urine Microscopic? NO; Appearance Urine Clear (Clear); Glucose Urine UA Negative (Negative); Leukocyte Esterase Ur Negative LEU/UL (Negative); Nitrate Urine Negative (Negative); Specific Grav Ur 1.007 (1.001-1.035)
--- OUTSIDE RECORDS SUMMARY | 2025-05-12 16:18 | XMS_ITS | Data Portability ---
Author Organization [facility], Main Office Address [address] [place] [address] Care Team Providers Care Spring Former Name Role Phone MARIBEL ELIZONDO Primary Care Provider [phone] Assessment No assessment recorded. Plan of Treatment [...] By Organization Details Last Modified Time 05/25/2024 [id number] discussed successfully removing cerumen to the right auditory canal. He will have an audiogram and tympanogram completed for hearing loss. We will follow-up on results become available. [email or web address] Not available 05/25/2024 12:33:07 02/03/2025 [id number] this patient nakia l now [email or web address] Not available 02/03/2025 11:21:10 Reason for Referral None Reported. Problems Name Problem SNOMED Code Status Onset Date Resolution Date Notes Provider Name and Address Organization Details Recorded Time Sensorineur al hearing loss 92732911 Active 2023 Kay Clinton RN [facility], [facility] 12:29:55 Impacted cerumen in right ear 2505915553595 103 Active 2023 VIKTOR Huang [address] [facility], [facility] [address], [place], [address] [facility] 4 12:32:10 Sensorineur al hearing loss of bilateral ears 842642293 Active 2023 VIKTOR Huang [address] [facility], [address] [address], [place], [address], [facility] [employer] [facility] [employer] [facility] 4 12:32:19 Impacted cerumen of bilateral ears 1738886519307 108 Active 2024 Fredy Peters MD [address] [facility], [facility] [address], [place], [address], [employer] [facility] 5 11:20:57 Problem Notes None recorded. Medical Equipment None Reported. Allergies Allergen ID Allergen Name Allergen Category Reaction Reaction Severity Criticality Documentation Date Start Date Code Code System Note Provider Name and Address Organization Details Recorded Time 14454 ibuprofen medicatio n Not available Not available Not available 05/25/2024 5640 RxNoSUSY Bueno, [facility] [employer] [facility] 12:15:43 69464 Aleve medicatio n Not available Not available Not available 05/25/2024 06905 1 RxSUSY Jalloh, [facility] [employer] [facility] 12:15:48 Medications Name Sig Start Date Stop Date Status Note LastModified by Organization Details LastModified Time amoxicillin 500 mg capsule TAKE 1 CAPSULE BY MOUTH EVERY 8 HOURS UNTIL FINISHED 05/25 completed Not Available Not Available Not Available azithromyci n 250 mg tablet TAKE 2 TABLETS BY MOUTH TODAY, THEN TAKE 1 TABLET DAILY FOR 4 DAYS DIRECTED 01/31 completed Not Available Not Available Not Available [...] mg tablet,exte nded release TAKE 1 TABLET BY MOUTH EVERY DAY active Not Available Not Available No t Available methocarbam ol 750 mg tablet TAKE 1 TABLET BY MOUTH EVERY DAY AT BEDTIME NEEDED FOR MUSCLE SPASMS active Not Available Not Available No t Available pantoprazol e 40 mg tablet,celso yed release TAKE 1 TABLET BY MOUTH EVERY DAY EVERY MORNING active Not Available Not Available No t Available cefdinir 300 mg capsule TAKE 1 CAPSULE BY MOUTH EVERY 12 HOURS FOR 10 DAYS 01/31 completed Not Available Not Available Not Available Calcium 500 active Not Available Not A vailable Not Available magnesium 100 mg (as glycinate) tablet Take by oral route. active Not Available Not Available No t Available Xarelto 20 mg tablet TAKE 1 TABLET BY MOUTH EVERY DAY active Not Available Not Available No t Available Paxlovid 300 mg (150 mg x 2)-100 mg tablets in a dose pack TAKE 1 (ORAL) DIRECTED ON DOSE PACK 05/25 completed Not Available Not Available Not Available Vitals Date Recorded Body height Body mass index (BMI) Body weight Body temperature Provider Name and Address Organization Details Last Updated DateTime 02/03/2025 175.26 cm 35.3 kg/m2 819440.58 g 97.6 [degF] Kay Clinton RN [facility] [employer] 02/03/2025 11:02:53 Date Recorded Body weight Body mass index (BMI) Body height Provider Name and Address Organization Details Last Updated DateTime 05/25/2024 640336.86 g 35.3 kg/m2 175.26 cm Kay Clinton RN [facility] [employer] 05/25/2024 12:14:36 Social History Question Answer Notes LastModified by Organizat ion Details LastModified Time Tobacco Smoking Status Former Smoker Kay Clinton RN [facility], [facility] [employer] 05/25/2024 12:16:52 When Did You Quit Smoking? 16+yearssinc elastcigaret te Information not available 05/25/2024 Sex: Unknown Functional Status Question Answer Note LastModified by Organization D etails LastModified Time What is your level of alcohol consumption? None Information not available 05/25/2024 Mental Status None recorded. Family History Relationship Description Onset Age of this Age Resolved Age Notes LastModified by Organization Details LastModified Time Father No current problems or disability Not available 05/25 12:15:11 Mother No current problems or disability Not available 05/25 12:15:11 Notes:NO ENT Medical History Condition Response HEARTBURN / REFLUX Y SLEEP DISORDER Y Past Encounters Encounter ID Performer Location Encounter Start Date Encounter Closed Date Diagnosis/Indication Diagnosis SNOMED-CT Code Diagnosis ICD10 Code Diagnosis IMO Codes Diagnosis Note [id number] MD MARJAN [facility] [place] [address] [place] [address] 05/25/2024 11:53:32 05/25/2024 12:33:55 Impacted cerumen in right ear 7240236169 682867 H61.21 cerumen impaction to the right ear removed with lavage Sensorineu ral hearing loss of bilateral ears 206960851 H90.3 [id number] MD RENETTA [facility] [place] [address] [place] [address] 02/03/2025 10:48:59 02/04/2025 08:48:06 Impacted cerumen of bilateral ears 7981767417 624606 H61.23 333562 Health Concerns Section Related Observation LastModified by Organization Detai ls LastModified Time None Recorded Concern Status LastModified by Organization Details LastModified Time None Recorded Advance Directives Directive None Recorded Payers Insurance Date Sequence Insurance Name Policy Number Policy Abraham Covered Member ID Abraham Member ID Guarantor Name 01/31/2025 1 [employer] - PRIME (MEDICARE REPLACEMENT/ ADVANTAGE - HMO) [id number] Ac Gabriel [id number] Ac Gabriel Notes Date Note Type Note [...] throughout his life. He denies any otalgia. VIKTOR Huang [address], [address], [place], [address], [facility] 05/25/2024 12:33:11 02/03/2025 text/html this patient has an audiology appointment and has cerumen bilaterally Fredy Peters MD [address], [address], [place], [address], [facility] 02/03/2025 11:21:35
--- OUTSIDE RECORDS SUMMARY | 2025-05-12 16:18 | XMS_ITS | Clinical Summary ---
Author Organization [facility] [place] [address] Address [address] [place] [address] Care Team Providers Care Checker Product Design Name Role Phone Jurgen Gilman DO Primary Care Provider [phone] Allergies Active Allergy Reactions Criticality Noted Date Comments Ibuprofen Stomach upset Low 02/18/2009 Medications cetirizine (ZyrTEC) 10 mg tablet Take 1 tablet (10 mg total) by mouth daily Active multivitamin tabletIndicatio ns:Vitamin Deficiency Prevention Take 1 tablet by mouth Active pantoprazole DR (PROTONIX) 40 mg EC tablet Take 1 tablet (40 mg total) by mouth daily Active calcium carbonate (CALCIUM 500 ORAL) Take by mouth Active magnesium citrate 100 mg tablet Take by mouth Active verapamil SR (CALAN SR) 180 mg CR tablet Take 1 tablet (180 mg total) by mouth nightly 05/10/2020 Active rivaroxaban (Xarelto) 20 mg tablet TAKE 1 TABLET BY MOUTH EVERY DAY 90 tablet 3 01/26/2025 Active Active Problems Problem Noted Date Diagnosed Date ALBERTO on CPAP 08/14/2019 Chronic anticoagulation 08/14/2019 Paroxysmal atrial fibrillation 08/14/2019 Surgical History Surgery Date Site/Laterality Comments ROTATOR CUFF REPAIR Right UMBILICAL HERNIA REPAIR Medical History Medical History Date Comments Atrial fibrillation (HCC) Obesity GERD (gastroesophageal reflux disease) 2012 Cataract 2021 Sleep apnea 2010 Migraines 1989 Family History Medical History Relation Name Comments Bone cancer Father Josh Gabriel Early Father Josh Gabriel Breast cancer Mother Relation Name Status Comments Father Josh Gabriel (Age 63) Mother (Age 49) Social History Tobacco Use Types Packs/Day Years Used Date Smoking Tobacco: Former Smokeless Tobacco: Never Tobacco Cessation:Counseling Given: Not Answered Alcohol Use Standard Drinks/Week Comments Not Currently 0 (1 standard drink = 0.6 oz pur e alcohol) Sex and Gender Information Value Date Recorded Sex Assigned at Not on file Legal Sex Male 7:09 AM [employer] Gender Identity Not on file Sexual Orientation Not on file Last Filed Vital Signs Vital Sign Reading Time Taken Comments Blood Pressure 138/78 12/15/2024 8:49 AM CDT Pulse 61 12/15/2024 8:49 AM CDT Temperature - - Respiratory Rate - - Oxygen Saturation 97% 12/15/2024 8:49 AM CDT Inhaled Oxygen Concentration - - Weight 108 kg (238 lb) 12/15/2024 8:49 AM CDT Height 172.7 cm (5' 8) 12/15/2024 8:49 AM CDT Body Mass Index 36.19 12/15/2024 8:49 AM CDT Plan of Treatment Health Maintenance [...] Well Visit 65+ 2019 Influenza Vaccine (#1) 2025 9, 04/05/2018, 04/20/2014 Insurance [employer] MEDICARE GOLD [employer] MEDICARE GOLD [facility] Address: [address] [place] [address] Care Teams Checker Product Design Relationship Specialty Start Date End Date Jurgen Gilman DO PCP - General Internal Medicine 07/24/19
== END 2025-05-12 15:47 | disposition home or self-care (01) ==
PROVIDERS: PCP Nurse Practitioner; Visit Provider Nurse Practitioner
DX: R30.0 Dysuria (principal)
CPT/HCPCS: 81003